=== PATIENT | female | born 1975 | race Caucasian/White ===

== ENCOUNTER 2018-06-21 00:35 | Emergency (ER) | payer OTHER ==
[~2018-06-21] VITALS: Ht 157.5 cm; Wt 70.0 kg
[2018-06-21 00:42] VITALS: Ht 157.5 cm; Wt 70.0 kg
[2018-06-21 02:32] VITALS: BP 112/69; PULSE 87; RESP 19
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
== END 2018-06-21 02:32 | disposition home or self-care (01) ==
LOC: E/R 00:35
DX: T74.21XA Adult sexual abuse, confirmed, initial encounter (principal); F17.210 Nicotine dependence, cigarettes, uncomplicated
CPT/HCPCS: 99282